=== PATIENT | female | born 1970 | race Caucasian/White ===

== ENCOUNTER → 2020-04-27 | Outpatient (CLI) | payer OTHER | END | disposition home or self-care (01) | LOC: STAR 08:25 | PROVIDERS: ATTEND Orthopaedic Surgery Hand Surgery | DX: Z20.828 Contact with and (suspected) exposure to other viral communicable diseases (principal); D48.1 Neoplasm of uncertain behavior of connective and other soft tissue | CPT/HCPCS: 87635 ==

== ENCOUNTER 2020-05-03 06:06 | Day surgery (SDC) | payer OTHER ==
[2020-04-27 09:02] VITALS: BP 112/75
[~2020-05-03] VITALS: Ht 162.6 cm; Wt 68.0 kg
[2020-05-03] MEDS ORDERED: LIDOCAINE/PF 1%, 30ML ONE (06:13)
[2020-05-03] MEDS ORDERED: BUPIVACAINE/PF 0.5% ONE (06:13)
[2020-05-03] MEDS ORDERED: LACTATED RINGERS 1,000 ML IV SCH (07:00)
[2020-05-03] MEDS ORDERED: CHLORHEXIDINE 15 ML UDC MM ONE (07:00)
[2020-05-03 07:10] LABS: HCG UR SG 1.023 (1.003-1.030)
[2020-05-03] MEDS ORDERED: MIDAZOLAM 1 MG/ML, 2ML ONE (07:15)
[2020-05-03] MEDS ORDERED: FENTANYL PF 100 MCG/2ML ONE ×2 (07:15→09:28)
[2020-05-03] MEDS ORDERED: KETOROLAC 30 MG/1 ML ONE (07:52)
[2020-05-03] MEDS ORDERED: PROPOFOL 10 MG/ML, 20ML ONE (07:52)
[2020-05-03] MEDS ORDERED: CEFAZOLIN 1,000 MG ONE (07:52)
[2020-05-03] MEDS ORDERED: DEXAMETHASONE 4 MG/ML, 1ML ONE (07:52)
[2020-05-03] MEDS ORDERED: ONDANSETRON 2MG/ML, 2ML ONE ×2 (07:52→09:36)
[2020-05-03] MEDS ORDERED: BUPIVACAINE/PF 0.5% INFIL ONE (08:14)
[2020-05-03] MEDS ORDERED: LIDOCAINE 1%-EPI 1:100K, 30ML INFIL ONE (08:14)
[2020-05-03] MEDS ORDERED: ONDANSETRON 2MG/ML, 2ML IVPush PRN (08:30)
[2020-05-03] MEDS ORDERED: FENTANYL PF 100 MCG/2ML IV PRN (08:30)
[2020-05-03] MEDS ORDERED: DIPHENHYDRAMINE 50 MG/ML, 1ML IVPush PRN (08:30)
[2020-05-03] MEDS ORDERED: OXYcodone 5 MG/5 ML ORAL.SOL UDC PO PRN (08:30)
[2020-05-03] MEDS ORDERED: PROMETHAZINE 25 MG/ML, 1ML IVPush PRN (08:30)
[2020-05-03] MEDS ORDERED: ACETAMINOPHEN 325 MG TABLET PO PRN (08:30)
[2020-05-03] MEDS ORDERED: HYDROmorphone 1 MG/ML, 1ML INJ IVPush PRN (08:30)
[2020-05-03] MEDS ORDERED: OXYcodone 5 MG/5 ML ORAL.SOL UDC ONE (09:28)
[2020-05-03] MEDS ORDERED: ACETAMINOPHEN 650 MG/20.3 ML UDC ONE (09:28)
== END 2020-05-03 10:30 | disposition home or self-care (01) ==
LOC: OUT 06:06
PROVIDERS: ATTEND Orthopaedic Surgery Hand Surgery
DX: D48.1 Neoplasm of uncertain behavior of connective and other soft tissue (principal); G43.909 Migraine, unspecified, not intractable, without status migrainosus; Z88.2 Allergy status to sulfonamides; Z88.1 Allergy status to other antibiotic agents; Z91.018 Allergy to other foods; Z72.89 Other problems related to lifestyle; Z98.890 Other specified postprocedural states; Z79.899 Other long term (current) drug therapy; Z82.49 Family history of ischemic heart disease and other diseases of the circulatory system; Z82.5 Family history of asthma and other chronic lower respiratory diseases
CPT/HCPCS: 25076; 81025; 88305; J0690; J1100; J1885; J2250; J2405; J2704; J3010; J7120